=== PATIENT | female | born 1940 | race Caucasian/White ===

== ENCOUNTER → 2021-01-25 08:54 | Outpatient (BNVA) | payer MEDICARE, SELFPAY | PROVIDERS: PCP Internal Medicine | DX: N39.0 Urinary tract infection, site not specified (principal) | CPT/HCPCS: 99212 ==

== ENCOUNTER 2022-02-11 12:53 | Outpatient (REF) | payer MEDICARE, SELFPAY ==
[2022-02-11 17:08] LABS: Urine Cytology See Pathology rpt
== END 2022-02-11 12:54 | disposition home or self-care (01) ==
LOC: HO.LAB 12:53
PROVIDERS: PCP Internal Medicine; Visit Provider Nurse Practitioner Family
DX: N39.0 Urinary tract infection, site not specified (principal); Z87.440 Personal history of urinary (tract) infections
CPT/HCPCS: 51798; 88112; 99212

== ENCOUNTER 2022-12-22 11:00 | Outpatient (REF) | payer MEDICARE, SELFPAY ==
--- NOTE | ~2022-12-22 | US_ITS ---
EXAMINATION: US RETROPERITONEAL COMPLETE (RENAL) CLINICAL INFORMATION: Urinary tract infection, site not specified. COMPARISON: CT abdomen and pelvis 11/13/2017. Ultrasound abdomen limited 02/10/2017. X-ray abdomen KUB 02/10/2017. TECHNIQUE: Real-time imaging of the kidneys and bladder. FINDINGS: RIGHT KIDNEY: 7.5 x 3.4 x 4.5 cm (SAG x AP x TRV). The kidney is normal in size, contour, and echogenicity. Renal cortical thickness is normal. No calculi or focal parenchymal lesions. No hydronephrosis. LEFT KIDNEY: 9.4 x 4.7 x 4.7 cm (SAG x AP x TRV). The kidney is normal in size, contour, and echogenicity. Renal cortical thickness is normal. No calculi or focal parenchymal lesions. No hydronephrosis. BLADDER: Well distended and normal. Bilateral ureteral jets are demonstrated. Prevoid bladder volume is 286 mL. Postvoid bladder volume is 11.1 mL. US/US retroperitoneal limited IMPRESSION: 1. Normal sonographic appearance of bilateral kidneys. Unchanged since right upper quadrant ultrasound examination on 02/10/2017. 2. Normal sonographic appearance of urinary bladder and patent bilateral ureters are demonstrated. No evidence of significant urine retention.
== END 2022-12-22 11:01 | disposition home or self-care (01) ==
LOC: HO.US 11:00
PROVIDERS: PCP Physician Assistant Medical; Visit Provider Nurse Practitioner Family
DX: N39.0 Urinary tract infection, site not specified (principal)
CPT/HCPCS: 76775

== ENCOUNTER 2023-02-27 09:38 | Outpatient (AMB) | payer MEDICARE, SELFPAY ==
--- NOTE | 2023-02-27 10:16 | MHC.OFFVIS ---
Intake Intake Visit Reasons: 1yr follow up/US(set) Intake Note: Patient is present for follow up recurrent UTI and Ultrasound (imaging 12/22/22 Urology Medication: None Blood Thinner: None Post Void Residual: 0ml's Vpk Teacher Required: No Accompanied by: Self / Same As Patient Allergies lansoprazole [Prevacid] Allergy (Unknown, Verified 02/27/23 23:40) diarrhea erythromycin base [ERYTHROMYCIN BASE] Adverse Reaction (Intermediate, Verified 02/27/23 23:40) NAUSEA & VOMITING Erythromycin Allergy (Unknown, Uncoded 02/27/23 23:40) Unknown Medication List - Last Reconciled 02/27/23 by BRITTANY Mojica acetaminophen 0 mg PO aspirin 81 mg PO DAILY atorvastatin 10 mg PO DAILY brimonidine 0.2% drtommie ophthalmic (eye) dronedarone ([place]aq) 400 mg PO DAILY ipratropium bromide intranasal lorazepam 0.5 mg PO BID PRN nitrofurantoin macrocrystal 50 mg PO BEDTIME 90 days valsartan 160 mg PO DAILY HPI HPI Comments History of Present Illness Details Nevin is a pleasant 83-year-old female patient female patient who presents to the office today for follow-up of her chronic recurrent urinary tract infections. She has a past medical history of AFib, hemangioma of the liver, idiopathic osteoporosis, aortic stenosis, hyperlipidemia, hiatal hernia, gout anxiety, hearing loss, aortic valve disorder, UTI, and microscopic hematuria. In discussion with the patient today she reports to be doing and feeling well. She reports noting no UTI like symptoms and or UTIs since her last office visit here over a year ago. Recent retroperitoneal ultrasound results reviewed with the patient today. Bilateral kidneys with no calculi, lesions, and or hydronephrosis. The bladder is well distended and normal. Bilateral ureteral jets are demonstrated. Pre void bladder volume is approximately 300 mL. Postvoid bladder volume is approximately 10 mL. When asked she reports compliance with 50 mg of Macrobid daily. She currently denies any bothersome urinary issues or concerns. She denies urinary urgency, urinary frequency, incontinence, nocturia, hematuria, dysuria, foul smelling urine, changes to urinary stream, flank pain, fever, and or chills. She is happy with her current voiding parameters. In office urinalysis results reviewed with the patient today. PVR 0 mL. PFSH Medical History History of recurrent urinary tract infection Dysuria Hemorrhage of gastrointestinal tract Atrial fibrillation Hemangioma of liver Idiopathic osteoporosis Aortic stenosis Hyperlipidemia Hiatal hernia Anxiety Hearing loss Aortic valve disorder UTI (urinary tract infection) Microscopic hematuria Surgical History History of surgery H/O aortic valve replacement H/O adenoidectomy History of tonsillectomy History of hernia repair H/O laparoscopy History of colonoscopy Family History Father Prostate cancer Mother Sepsis Other Breast cancer Review of Systems Const Reports no additional complaints Eyes Reports no additional complaints ENT Reports no additional complaints Card Reports no additional complaints Resp Reports no additional complaints GI Details: patient reports using felice seeds that help her with regular bowel movements Reports no additional complaints Reports as per HPI Musc Reports no additional complaints Neuro Reports no additional complaints Psych Reports no additional complaints Physical Exam Const General: cooperative, healthy appearing, comfortable, no acute distress, well developed, alert and awake Nutritional Appearance: average body habitus Orientation/consciousness: patient oriented x3 Limitations: no limitations HEENT Head: Yes normal to inspection, Yes normocephalic and Yes atraumatic Ears: hearing grossly normal bilaterally Eyes General: appearance normal, both eyes and all related structures Neck Neck: Yes normal visual inspection and Yes trachea midline Chest Chest palpation & inspection: normal inspection of the chest Resp Effort & Inspection: normal respiratory effort and able to speak in complete sentences Cardio Rate: regular rate GI Inspection: Yes normal to inspection General: Yes no CVA tenderness Back/Spine/Pelvis Back: no CVA tenderness Neuro General: patient oriented x3 Extrem General: Yes normal to inspection Psych Appearance: grossly normal and well kempt Mental Status: mental status grossly normal Speech and movement: Normal speech and movement present and Clear speech present Affect: normal affect Attitude: cooperative Thought process: Normal thought process present Thought content: Normal thought content present Insight: Good insight present (Psych) Judgement: Good judgement present (Psych) Office Procedures Post Void Residual Post Residual Void Post Void Residual (PVR): 0 [id number] Void Residual by ultrasound Results AMB Urinalysis, Automated UA Leukoctes 0 Dante/uL Last Edit by Petra Hagen on 02/27/23 10:39 UA Nitrite Negative Last Edit by [employer] on 02/27/23 10:39 UA Urobilinogen 0.2 mg/dL Last Edit by [employer] on 02/27/23 10:39 UA Protein 0 mg/dL Last Edit by [employer] on 02/27/23 10:39 UA pH 6.0 Last Edit by [employer] on 02/27/23 10:39 UA Blood 0 David/uL Last Edit by [employer] on 02/27/23 10:39 UA Specific Cord 1.010 Last Edit by [employer] on 02/27/23 10:39 UA Ketone Negative Last Edit by [employer] on 02/27/23 10:39 UA Bilirubin 0 mg/dL Last Edit by [employer] on 02/27/23 10:39 UA Glucose 0 mg/dL Last Edit by [employer] on 02/27/23 10:39 Results Reviewed Results Reviewed: Laboratory Last Values Urine pH (Auto) 6.0 02/27/23 10:18 Specific Cord (Auto) 1.010 02/27/23 10:18 Urine Protein (Auto) 0 mg/dL 02/27/23 10:18 Glucose (UA)(Auto) 0 mg/dL 02/27/23 10:18 Urine Ketones (Auto) Negative 02/27/23 10:18 Urine Blood (Auto) 0 David/uL 02/27/23 10:18 Urine Nitrite (Auto) Negative 02/27/23 10:18 Urine Bilirubin (Auto) 0 mg/dL 02/27/23 10:18 Urine Urobilinogen (Auto) 0.2 mg/dL 02/27/23 10:18 Leukocyte Esterase (Auto) 0 Dante/uL 02/27/23 10:18 Date of Service: 12/22/22 EXAMINATION: US RETROPERITONEAL COMPLETE (RENAL) FINDINGS: RIGHT KIDNEY: 7.5 x 3.4 x 4.5 cm (SAG x AP x TRV). The kidney is normal in size, contour, and echogenicity. Renal cortical thickness is normal. No calculi or focal parenchymal lesions. No hydronephrosis. LEFT KIDNEY: 9.4 x 4.7 x 4.7 cm (SAG x AP x TRV). The kidney is normal in size, contour, and echogenicity. Renal cortical thickness is normal. No calculi or focal parenchymal lesions. No hydronephrosis. BLADDER: Well distended and normal. Bilateral ureteral jets are demonstrated. Prevoid bladder volume is 286 mL. Postvoid bladder volume is 11.1 mL. IMPRESSION: 1. Normal sonographic appearance of bilateral kidneys. Unchanged since right upper quadrant ultrasound examination on 02/10/2017. 2. Normal sonographic appearance of urinary bladder and patent bilateral ureters are demonstrated. No evidence of significant urine retention. Assessment & Plan Assessment & Plan (1) History of recurrent urinary tract infection: Code(s): Z87.440 - Personal history of urinary (tract) infections Plan In office urinalysis results reviewed with the patient today; as noted above. PVR 0 mL. Recent retroperitoneal ultrasound results reviewed with the patient today. Patient reports no UTI like symptoms and or UTI since her last visit here approximately 1 year ago. She currently denies any bothersome urinary issues or concerns at this time. Continue Macrobid; refill provided Discussed UTI prevention with D mannose supplement, vitamin-C, increasing fluid intake, behavioral therapy with timed voiding, perineal hygiene and postcoital voiding, and management of constipation with stool softeners and increased fiber intake. Follow-up in 1 year with PVR; or sooner with any issues, concerns, and or questions. Orders: Orders AMB Urinalysis Automated 02/27/23 Z13.9 - Encounter for screening, unspecified AMB Post Void Residual by ultrasound 02/27/23 N39.0 - Urinary tract infection, site not specified Medications: Refilled nitrofurantoin macrocrystal must administer with a meal/food Decrease in dose 50 mg PO BEDTIME 90 days 90 caps 3RF N39.0 - Urinary tract infection, site not specified Discontinued nitrofurantoin macrocrystal must administer with a meal/food Discontinued Reason: Doctor's Order 100 mg PO DAILY 30 days 30 caps 1RF Patient Instructions: The patient had an opportunity to ask questions regarding the treatment plan. All questions were answered. Physical exam, labs, and imaging were discussed and reviewed in detail. As well as risks, benefits, and discussion of treatment choices. No major barriers to understanding were identified. The patient expressed understanding and agreement with the above treatment plan. The patient was made aware they should contact our office by phone for worsening of their current condition, the appearance of new symptoms, or with any questions or concerns. Compliance is encouraged with any medications and follow up testing that is ordered. It is a privilege to be allowed the opportunity to participate in? your urological care.? Again, if you have any questions or concerns If you have any questions or concerns please do not hesitate to contact me. The office is [phone]. This note is constructed using voice recognition software. While every effort has been made to ensure accuracy windows server administrator errors may have been included. Yours sincerely, LURDES Mojica-CARMEN Coding Level of Care Code Est Pt Level 3 (03712) Diagnoses History of recurrent urinary tract infection Z87.440 CPT Codes Post Residual Void - PVR CPT Code: 35806-Ppkp Void Residual by ultrasound ([id number])
== END 2023-02-27 10:52 | disposition home or self-care (01) ==
PROVIDERS: Visit Provider Nurse Practitioner Family
DX: Z87.440 Personal history of urinary (tract) infections (principal)
CPT/HCPCS: 99213

== ENCOUNTER → 2023-02-27 09:38 | Outpatient (BNVA) | payer MEDICARE, SELFPAY | PROVIDERS: Visit Provider Nurse Practitioner Family | DX: Z87.440 Personal history of urinary (tract) infections (principal) | CPT/HCPCS: 51798; 81003; 99212 ==

== ENCOUNTER → 2023-03-05 10:55 | Outpatient (REF) | payer MEDICARE, SELFPAY ==
--- NOTE | 2023-03-05 11:05 | CA_ITS ---
Transthoracic Echocardiogram Patient (Last, First, Middle): Nevin Chavez, Gender: Female Date of : 1940 Age: 83 Procedure Date: 03/05/2023 Procedure Type: Transthoracic Echocardiogram Location: OP Height: 149.86 cm Weight: 51.71 kg BSA: 1.45 m2 Heart Rate: 60 bpm BP: 130 / 82 mmHg Barrel Handler: SB Referring MD: Marcial Ponce MD Symptoms: Z95.2 A/P AVR Study Quality: Adequate ECG Rhythm: Sinus Conclusions: - The left ventricular systolic function is normal. The calculated ejection fraction is 61% by biplane method. - Evidence suggests grade III (severe) diastolic dysfunction. - A bioprosthetic aortic valve is present. The prosthetic aortic valve appears to be functioning normally. Findings Left Ventricle Normal left ventricular cavity size. There is normal left ventricular wall thickness. The left ventricular systolic function is normal. The calculated ejection fraction is 61% by biplane method. There is no evidence of regional wall motion abnormalities. There is paradoxical septal motion consistent with post-operative status. Evidence suggests grade III (severe) diastolic dysfunction. Right Ventricle Normal right ventricular cavity size. There is moderate to severely decreased right ventricular systolic function. Atria Both atria are normal in size. Aortic Valve A bioprosthetic aortic valve is present. The prosthetic aortic valve appears to be functioning normally. There is no aortic valve regurgitation. Mitral Valve The mitral valve appears normal. There is mild mitral valve regurgitation. There is no mitral valve stenosis. Pulmonic Valve The pulmonic valve is likely normal. Tricuspid Valve Normal tricuspid valve structure. There is mild tricuspid valve regurgitation. There is no evidence of pulmonary hypertension. Great Vessels The asc aorta is normal in size. Venous The inferior vena cava is normal in size and collapses greater than 50% with inspiration. Pericardium/Pleural There is no evidence of pericardial effusion. Prior Study Comparison No prior study available for comparison. Measurements 2D Linear Measurements IVSd: 0.94 0.6-0.9/0.6-1.0 cm LVIDd: 3.69 3.9-5.3/4.2-5.9 cm LVIDd Index: 2.54 2.4-3.2/2.2-3.1 cm/m2 LVIDs: 2.46 2.0-3.6 cm LVPWd: 0.63 0.7-1.1 cm LA Diam: 3.10 2.7-3.8/3.0-4.0 cm LAIDs Index: 2.14 1.5-2.3 cm/m2 LV Mass: 99.19 67-162/88-224 g LV Mass Index: 68.40 43-95/49-115 g/m2 LVOT Diam: 1.80 3.0+(-)1.3 cm 2D Systolic Function EF 4C: 58.30 >55% EF 2C: 65.70 >55% EF BiP: 61.40 >55% Mitral Valve MV VTI: 0.42 MV Pk Daniel: 1.54 MV Mn Daniel: 0.87 MV Pk Grad: 9.00 MV Mn Grad: 4.00 MV Pk E: 1.50 MV PK A: 0.61 MV Decel Time: 317.00 E/A: 2.50 E'Lateral: 7.90 E'Medial: 3.30 E/E' Med: 45.50 E/E' Lat: 19.00 PHT: 93.00 MVA PHT: 2.37 MVA Continuity: 1.27 Decel Billings: 4.73 MR ERO: 13.00 MR Alias Daniel: 0.39 MR RAD: 0.50 Aortic Valve AoV Pk Daniel: 1.77 AoV Mn Daniel: 1.30 AoV VTI: 0.40 AoV Pk Grad: 13.00 Aov Mn Grad: 7.00 BULMARO Cont.VTI: 1.32 LVOT LVOT Pk Daniel: 0.92 LVOT Mn Daniel: 0.60 LVOT VTI: 0.21 LVOT Pk Grad: 3.00 LVOT Mn Grad: 2.00 LVOT Diam: 1.80 LVOT Area: 2.54 Diastolic Function MV Pk E: 1.50 MV Pk A: 0.61 E/A: 2.50 E'Medial: 3.30 E/E' Med: 45.50 E' Laterial: 7.90 E/E' Lat: 19.00 Right Ventricle TAPSE (mm): 9.70 TVS' Daniel: 6.39 Tricuspid Valve TR Pk Daniel: 2.56 TR Pk Grad: 26.00 RA Press: 3.00 RVSP: 29.00 Great Vessels Aorta Sinus of Valsalva: 2.70 2.0-3.5 cm Ao Asc: 3.00 2.1-3.4 cm Pulmonary Valve PV Pk Daniel: 0.88 Peak PV Grad: 3.00 Updated in Other Vendor System with Status of Final Shravan Euceda MD electronically signed on 03/06/2023 3:22:29 PM with status of Final
== END ==
LOC: HO.CARD 10:55
PROVIDERS: PCP Physician Assistant Medical; Visit Provider Internal Medicine Cardiovascular Disease
DX: Z95.2 Presence of prosthetic heart valve (principal)
CPT/HCPCS: 93306

== ENCOUNTER → 2023-03-05 11:05 | Outpatient (BNV) | payer MEDICARE, SELFPAY | PROVIDERS: PCP Physician Assistant Medical; Visit Provider Internal Medicine | DX: I34.0 Nonrheumatic mitral (valve) insufficiency (principal); I36.1 Nonrheumatic tricuspid (valve) insufficiency | CPT/HCPCS: 93306 ==

== ENCOUNTER 2023-12-05 12:15 | Outpatient (AMB) | payer MEDICARE, SELFPAY ==
--- NOTE | 2023-12-05 12:19 | AM.OFFWIN_ITS ---
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 Intake Note: Pt is here today Lt arm pain due to a fall Allergies lansoprazole [Prevacid] Allergy (Unknown, Verified 12/05/23 12:31) diarrhea erythromycin base [ERYTHROMYCIN BASE] Adverse Reaction (Intermediate, Verified 12/05/23 12:31) NAUSEA & VOMITING Erythromycin Allergy (Unknown, Uncoded 12/05/23 12:31) Unknown HPI HPI Comments History of Present Illness Details She presents to office with L arm injury She is R hand dominant Thursday she tripped over a step No HT or LOC + abrasion L arm initially with slight b leeding No large area to clean but used Aquaphor and A/D ointment Slight pain to area, approx 2/10 with palpation Her concern today is that her bruising is getting larger On baby aspirin but no other thinners Last night slight numbness over area She used ice after injury but not recently [facility] Medical History History of recurrent urinary tract infection Dysuria Hemorrhage of gastrointestinal tract Atrial fibrillation Hemangioma of liver Idiopathic osteoporosis Aortic stenosis Hyperlipidemia Hiatal hernia Anxiety Hearing loss Aortic valve disorder UTI (urinary tract infection) Microscopic hematuria Surgical History History of surgery H/O aortic valve replacement H/O adenoidectomy History of tonsillectomy History of hernia repair H/O laparoscopy History of colonoscopy Family History Father Prostate cancer Mother Sepsis Other Breast cancer Review of Systems Const Denies chills, Denies fatigue, Denies fever(s) and Denies headache(s) Eyes Denies blurry vision ENT Denies dizziness and Denies headache(s) Card Denies chest pain and Denies syncope Resp Denies cough Musc Reports tingling (tingling/numbness L forearm yesterday; resolved) and Reports other (L arm injury, edema) Skin/Breast Reports wounds (L forearm ecchymosis) Neuro Denies dizziness, Denies syncope, Denies headache(s), Denies focal weakness, Reports tingling (tingling/numbness L forearm yesterday; resolved) and Denies paresthesias Endo Denies fatigue Physical Exam Vital Signs: Last Vital Signs Temp 97.6 F 12/05/23 12:30 Pulse 76 12/05/23 12:30 BP 120/72 12/05/23 12:30 Pulse Ox 96 12/05/23 12:30 Oxygen Delivery Method Room Air 12/05/23 12:30 BMI result Body Mass Index 22.6 General: Non-toxic, NAD. Speaking full sentences. Skin: Warm dry throughout. L forearm along radial aspect pt has one mid forearm small palpable hematoma with superficial scabbed linear abrasion approx 2cm in length. Around and surrounding forearm has dark blue/purple discoloration. Discoloration extends to distal ulnar and a little along ventral aspect of forearm and along dorsal ulnar aspect extending proximally to approx 2cm from antecubital fossa. No bleeding or other edema noted, No extreme warmth or coolness to palpation Respiratory: No espiratory distress Cardiac: Radial pulse intact. Cap refill < 2 seconds L hand MSK: Full ROM extremities. Minimal tenderness to palpation distal ulna and area where hematoma is. Full ROM L wrist, elbow and shoulder without tenderness to palpation of those joints LUE Neurology: A/O. No aphasia or facial droop. Gait without abnormality Psych: Good mood and affect Assessment & Plan Assessment & Plan (1) Hematoma of arm: Code(s): S40.029A - Contusion of unspecified upper arm, initial encounter Qualifiers: Encounter type: initial encounter Laterality: left Qualified Code(s): S40.022A - Contusion of left upper arm, initial encounter Plan: Patient seen and evaluated. Xray forearm was revieed by myself as negative Discussed with pt warm compress/massage to break up hematoma Not concerned with spreading ecchymosis due to gravity Told elevation Monitor and call with concerns Numbness most likely due to pressure on nerve from hematoma and if it occurs again with weakness etc seek evaluation Patient gave verbal understanding and had no additional questions or concerns at time of discharge All questions answered Orders: Orders XR forearm LT 2V Today S40.029A - Contusion of unspecified upper arm, initial encounter Coding Level of Care Code Est Pt Level 3 (05998) Diagnoses Contusion of left upper extremity, initial encounter S40.022A Encounter type: initial encounter Laterality: left
[2023-12-05 12:30] VITALS: BP 120/72; PULSE 76; TEMP 36.4; O2SAT 96; BMI 22.6
== END 2023-12-05 13:14 | disposition home or self-care (01) ==
PROVIDERS: PCP Physician Assistant Medical; Visit Provider Physician Assistant
DX: S40.022A Contusion of left upper arm, initial encounter (principal)

== ENCOUNTER → 2023-12-05 12:15 | Outpatient (BNVA) | payer MEDICARE, SELFPAY | PROVIDERS: PCP Physician Assistant Medical ==

== ENCOUNTER 2023-12-05 12:20 | Outpatient (REF) | payer MEDICARE, SELFPAY ==
--- NOTE | ~2023-12-05 | XR_ITS ---
EXAMINATION: XR FOREARM, LEFT CLINICAL INFORMATION: Contusion. Concern for fracture. COMPARISON: None available. TECHNIQUE: AP and lateral views of the left forearm were obtained. FINDINGS: The bony structures are osteopenic. No fracture is seen. There appears to be mild soft tissue swelling/edema about the forearm. XR/XR forearm LT 2V IMPRESSION: No acute fracture. Soft tissue swelling/edema. Electronically signed by: Ronny España MD 12/06/2023 05:48 AM EDT
== END 2023-12-05 12:21 | disposition home or self-care (01) ==
LOC: HO.HMGCX 12:20
PROVIDERS: Visit Provider Physician Assistant
DX: S40.022A Contusion of left upper arm, initial encounter (principal)
CPT/HCPCS: 73090; 99212

== ENCOUNTER 2024-02-29 10:23 | Outpatient (AMB) | payer MEDICARE, SELFPAY ==
--- NOTE | 2024-02-29 10:30 | A.OFFVIS_ITS ---
Intake Visit Reasons: 1y/PVR Intake Note: Patient is present for 1Y follow up/PVR Urology Medication: None ALLERGIES: ERYTHROMYCIN Blood Thinner: None Post Void Residual: 0ml's TODAY'S PVR:0ML'S Manager Documentation Required: No Accompanied by: Self / Same As Patient Allergies lansoprazole [Prevacid] Allergy (Unknown, Verified 02/29/24 11:18) diarrhea erythromycin base [ERYTHROMYCIN BASE] Adverse Reaction (Intermediate, Verified 02/29/24 11:18) NAUSEA & VOMITING Erythromycin Allergy (Unknown, Uncoded 02/29/24 11:18) Unknown Medication List - Last Reconciled 02/29/24 by LURDES Mojica- aspirin 81 mg PO DAILY dronedarone (Multaq) 400 mg PO DAILY estradiol 0.01%(0.1mg/gram) (Estrace) 1 appful vaginal 3XW 90 days lorazepam 0.5 mg PO BID PRN nitrofurantoin macrocrystal 50 mg PO BEDTIME 90 days rosuvastatin 10 mg PO BEDTIME valsartan 80 mg PO DAILY HPI Comments Details: Nevin is a pleasant 84-year-old female patient female patient who presents to the office today for follow-up of her chronic recurrent urinary tract infections. She has a past medical history of AFib, hemangioma of the liver, idiopathic osteoporosis, aortic stenosis, hyperlipidemia, hiatal hernia, gout anxiety, hearing loss, aortic valve disorder, recurrent UTIs, and microscopic hematuria. In discussion with the patient today she reports to be doing and feeling well. She reports noting no UTI like symptoms and or UTIs since her last office visit here over a year ago. She reports compliance with low-dose Macrobid as prescribed. Previous workup has included a retroperitoneal ultrasound 01/08 noting bilateral kidneys with no calculi, lesions, and or hydronephrosis. The bladder is well distended and normal. Bilateral ureteral jets are demonstrated. Pre void bladder volume is approximately 300 mL. Postvoid bladder volume is approximately 10 mL. When asked she reports compliance with 50 mg of Macrobid daily. In discussion with the patient today she does report noting stress urinary incontinence. We discussed further intervention for stress urinary incontinence. She discusses at length her ongoing GI issues since her daughter was born over 60 years ago. She reports noting lower abdominal cramping, constipation, and hemorrhoids. We discussed correlation of constipation and recurrent urinary tract infections. She was enquiring pelvic organ prolapse therefore exam was performed in office today. No evidence of pelvic organ prolapse was found on exam today. Mild irritation noted to urethra. She otherwise denies urinary urgency, urinary frequency, nocturia, hematuria, dysuria, foul smelling urine, changes to urinary stream, flank pain, fever, and or chills. In office urinalysis results reviewed with the patient today. PVR 0 mL. PFSH Medical History History of recurrent urinary tract infection Dysuria Hemorrhage of gastrointestinal tract Atrial fibrillation Hemangioma of liver Idiopathic osteoporosis Aortic stenosis Hyperlipidemia Hiatal hernia Anxiety Hearing loss Aortic valve disorder UTI (urinary tract infection) Microscopic hematuria Surgical History History of surgery H/O aortic valve replacement H/O adenoidectomy History of tonsillectomy History of hernia repair H/O laparoscopy History of colonoscopy Family History Father Prostate cancer Mother Sepsis Other Breast cancer Review of Systems Const Reports no additional complaints Eyes Reports no additional complaints ENT Reports no additional complaints Card Reports no additional complaints Resp Reports no additional complaints GI Details: patient reports using felice seeds that help her with regular bowel movements Reports no additional complaints Reports as per HPI Musc Reports no additional complaints Neuro Reports no additional complaints Psych Reports no additional complaints Physical Exam Const General: cooperative, healthy appearing, comfortable, no acute distress, well developed, alert and awake Nutritional Appearance: average body habitus Orientation/consciousness: patient oriented x3 Limitations: no limitations HEENT Head: Yes normal to inspection, Yes normocephalic and Yes atraumatic Ears: hearing grossly normal bilaterally Eyes General: appearance normal, both eyes and all related structures Neck Neck: Yes normal visual inspection and Yes trachea midline Chest Chest palpation & inspection: normal inspection of the chest Resp Effort & Inspection: normal respiratory effort and able to speak in complete sentences Cardio Rate: regular rate GI Inspection: Yes normal to inspection General: Yes no CVA tenderness External Female Exam: normal external appearance Speculum Exam - Vagina: normal appearance of the vagina Back/Spine/Pelvis Back: no CVA tenderness Neuro General: patient oriented x3 Extrem General: Yes normal to inspection Psych Appearance: grossly normal and well kempt Mental Status: mental status grossly normal Speech and movement: Normal speech and movement present and Clear speech present Affect: normal affect Attitude: cooperative Thought process: Normal thought process present Thought content: Normal thought content present Insight: Fair insight present (Psych) Judgement: Fair judgement present (Psych) Office Procedures Post Void Residual Post Residual Void Post Void Residual (PVR): 0 [id number] Void Residual by ultrasound Results AMB Urinalysis, Automated UA Leukoctes 0 Dante/uL Last Edit by DAVID Archuleta on 02/29/24 10:44 UA Nitrite Negative Last Edit by Loc Ortiz [facility] on 02/29/24 10:44 UA Urobilinogen 0.2 mg/dL Last Edit by Loc Ortiz [facility] on 02/29/24 10:4 4 UA Protein 0 mg/dL Last Edit by Loc Ortiz [facility] on 02/29/24 10:44 UA pH 6.0 Last Edit by Loc Ortiz [facility] on 02/29/24 10:44 UA Blood 0 David/uL Last Edit by Loc Ortiz [facility] on 02/29/24 10:44 UA Specific [place] 1.010 Last Edit by Loc Ortiz [facility] on 02/29/24 10: 44 UA Ketone Negative Last Edit by Loc Ortiz [facility] on 02/29/24 10:44 UA Bilirubin 0 mg/dL Last Edit by Loc Ortiz [facility] on 02/29/24 10:44 UA Glucose 0 mg/dL Last Edit by Loc Ortiz [facility] on 02/29/24 10:44 Results Reviewed Results Reviewed: Laboratory Last Values Urine pH (Auto) 6.0 02/29/24 10:44 Specific [place] (Auto) 1.010 02/29/24 10:44 Urine Protein (Auto) 0 mg/dL 02/29/24 10:44 Glucose (UA)(Auto) 0 mg/dL 02/29/24 10:44 Urine Ketones (Auto) Negative 02/29/24 10:44 Urine Blood (Auto) 0 David/uL 02/29/24 10:44 Urine Nitrite (Auto) Negative 02/29/24 10:44 Urine Bilirubin (Auto) 0 mg/dL 02/29/24 10:44 Urine Urobilinogen (Auto) 0.2 mg/dL 02/29/24 10:44 Leukocyte Esterase (Auto) 0 Dante/uL 02/29/24 10:44 Assessment & Plan Assessment & Plan (1) Stress incontinence: Code(s): N39.3 - Stress incontinence (female) (male) Category: Medical (2) History of recurrent urinary tract infection: Code(s): Z87.440 - Personal history of urinary (tract) infections Category: Medical Plan In office urinalysis results reviewed with the patient today; as noted above. PVR 0 mL. We discussed at length potential causes of stress incontinence as well as further treatment options and risks and benefits of these treatment options. Will refer to pelvic floor therapy for further assessment evaluation. We discussed further treatment options of recurrent urinary tract infections Start Estrace cream as discussed and prescribed Discussed trial of discontinuation of low-dose Macrobid in 6 months status post initiation of Estrace cream. Will refer to GI for further assessment evaluation as patient reports longstanding history of constipation and hard stools with abdominal bloating. Follow-up in 9 months with PVR; or sooner with any issues, concerns, and or questions Orders: Orders AMB Urinalysis Automated Today Z13.9 - Encounter for screening, unspecified PT Evaluation and Treatment Today N39.3 - Stress incontinence (female) (male) Referrals Gastroenterology Referral K59.00 - Constipation, unspecified Medications: New estradiol 0.01%(0.1mg/gram) (Estrace) Apply pea-sized amount to urethra 3 times per week 1 appful vaginal 3XW 90 days 42.5 grams 3RF Patient Instructions: The patient had an opportunity to ask questions regarding the treatment plan. All questions were answered. Physical exam, labs, and imaging were discussed and reviewed in detail. As well as risks, benefits, and discussion of treatment choices. No major barriers to understanding were identified. The patient expressed understanding and agreement with the above treatment plan. The patient was made aware they should contact our office by phone for worsening of their current condition, the appearance of new symptoms, or with any que stions or concerns. Compliance is encouraged with any medications and follow up testing that is ordered. It is a privilege to be allowed the opportunity to participate in? your urological care.? Again, if you have any questions or concerns If you have any questions or concerns please do not hesitate to contact me. The office is [phone]. This note is constructed using voice recognition software. While every effort has been made to ensure accuracy superintendent car construction errors may have been included. Yours sincerely, BRITTANY Mojica Coding Level of Care Code Est Pt Level 4 (69875) Complex EM visit Add On G2211 Diagnoses Stress incontinence N39.3 History of recurrent urinary tract infection Z87.440 CPT Codes Post Residual Void - PVR CPT Code: 03459-[id number] Void Residual by ultrasound ([id number])
--- OUTSIDE RECORDS SUMMARY | 2024-02-29 11:54 | XMS_ITS | Patient Health Record ---
[facility] Address [address] [place] [address] Care Team Providers Care Pari Mutuel Clerk Name Role Phone Yordan Seay MD Primary Care Provider Ibana Any Kaur Unavailable [phone] Allergies Allergen (clinical drug ingredient) Drug/Non Drug Allergy documented on EMR Reaction Allergy Type Onset Date Status erythromycin Erythromycin Unknown Drug Allergy A ctive lansoprazole Prevacid diarrhea Drug Allergy Acti ve Reason For Referral No Information Medications Medication SIG (Take, Route, Frequency, Duration) Notes Start Date End Date Status Simvastatin 40 MG Oral for 90 Active Propafenone HCl 150 MG Oral for 90 Active LORazepam 0.5 MG Oral for 30 prn A ctive Ipratropium [place] 0.06 % Nasal for 90 prn Not-Taking zzzBone Stimulator . . . . for dx Stress fx 2014 Not-Taking Physical Therapy . . Gait training, strengthening. Call with questions 2-3x/week for 3-4 weeks 05/23/2015 Not-Taki ng Physical Therapy . . . 2-3x/week for as needed 10/06/2016 Active ASO Ankle/Foot Stablizing AFO As directed Wear Daily for as needed 09/01/2016 Active Atenolol 50 MG Oral for 90 Act celena Aspirin 81 MG 1 tablet Orally Once a day Active Diphenoxylate-Atropine 2.5-0.025 MG Oral for 7 Not-Taking Nightsplint AFO as directed Wear As directed for as needed 11/17/2016 Active Social History Tobacco Use: Social History Observation Description Date Details (start date - stop date) Former Smoker NA - NA Tobacco Use/Smoking Question Answer Notes Are you a: former smoker When did you stop smoking? 50 yrs ago Additional Findings: Tobacco Non-User Current no n-smoker Tobacco use other than smoking: Question Answer Notes Are you an other tobacco user? No Problems No Known Problems Plan Of Treatment No Information Insurance Providers Payer Name Payer Address Payer Phone Subscriber Number Group Number Insured Name Patient Relationship to Insured Coverage Start Date Coverage End Date [facility] [id number] [place] [phone] [id number] Nevin Chavez Self - patient is the insured Medical (General) History Medical History History ICD Code Hemangioma of liver Anxiety Hiatal hernia with reflux Hyperlipidemia Aortic stenosis Osteoporosis, ideopathic Atrial fibrillation, paroxysmal Hemorrhage of gastrointestinal tract Transfusions Surgical History Surgery Date(Month/Year) tonsillectomy and adenoidectomy inguinal hernia repair, laparoscopic colonoscopy gastric biopsy Hospitalization History Reason Date(Month/Year) [place] xrays right foot 12/30/14
--- OUTSIDE RECORDS SUMMARY | 2024-02-29 11:54 | XMS_ITS ---
Author Name [facility] Organization Unknown History of Medication Use Medication Directions Dispensed Refills Start Date End Date Stat furosemide (LASIX) 20 MG tablet Take 1 tablet (20 mg total) by mouth daily. 12/25/2021 active sotalol (BETAPACE) 80 MG tablet Take 1 tablet (80 mg total) by mouth every 12 (twelve) hours around the clock. 12/25/2021 active furosemide (LASIX) 20 MG tablet Take 1 tablet (20 mg total) by mouth daily. 12/25/2021 active warfarin (COUMADIN) 1 MG tablet Take 0.5 tablets (0.5 mg total) by mouth daily at the same time. Unless otherwise directed for GOAL INR 2-3 (AF and AVR) 12/25/2021 active lisinopril (PRINIVIL,ZeSTRIL) 5 MG tablet Take 1 tablet (5 mg total) by mouth daily. 12/25/2021 active Problems Problem Status Onset Date Problem Type Date of Resoluti on Source Chest pain active 2017-02-05 [facility]
== END 2024-02-29 11:14 | disposition home or self-care (01) ==
PROVIDERS: PCP Physician Assistant Medical; Visit Provider Nurse Practitioner Family
DX: N39.3 Stress incontinence (female) (male) (principal); Z87.440 Personal history of urinary (tract) infections; Z13.9 Encounter for screening, unspecified
CPT/HCPCS: 99214; G2211

== ENCOUNTER → 2024-02-29 10:23 | Outpatient (BNVA) | payer MEDICARE, SELFPAY | PROVIDERS: PCP Physician Assistant Medical; Visit Provider Nurse Practitioner Family | DX: N39.3 Stress incontinence (female) (male) (principal); Z87.440 Personal history of urinary (tract) infections | CPT/HCPCS: 51798; 81003; 99212 ==

== ENCOUNTER 2024-11-29 11:15 | Outpatient (REF) | payer MEDICARE, SELFPAY ==
--- OUTSIDE RECORDS SUMMARY | 2024-11-29 14:57 | XMS_ITS | Encounter Summary ---
Author Organization [employer] Address [address] [facility] [address] [place] [address] Care Team Providers Care Loss Control Manager Name Role Phone Unavailable Primary Care Provider Unavailabl e Encounter Details Date Type Department Care Team (Late Contact Info) Description 08/11/2023 Telephone [facility] ADULT DENTAL [address] [facility] [place] [address] Osvaldo Nunes DMD [address] [place] [address] Social History Tobacco Use Types Packs/Day Years Used Date Smoking Tobacco: Never Passive Smoke Exposure: Never Smokeless Tobacco: Never Comments Unknown Sex and Gender Information Value Date Recorded Sex Assigned at Female 12/16/2021 10:33 AM EDT Legal Sex Female 10:33 AM EDT Gender Identity Female 12/16/2021 10:33 AM EDT Sexual Orientation Straight 12/16/2021 10 :33 AM EDT documented as of this encounter Miscellaneous Notes * Telephone Encounter - Jannet Yang - 08/11/2023 12:02 PM EDT Patient says she got seen today she says during her izabela her front tooth got chipped .she would like a call from dr nunes documented in this encounter Plan of Treatment Upcoming Encounters Date Type Department Care Team (Late Contact Info) Description 02/03/2025 1:30 PM EST Office Visit [facility] ADULT DENTAL [address] [place] [address] Anjel Yeboah documented as of this encounter Visit Diagnoses Not on filedocumented in this encounter
--- OUTSIDE RECORDS SUMMARY | 2024-11-29 14:57 | XMS_ITS | Clinical Summary ---
Author Organization [employer] Address [address] [facility] 7t [place] [address] Care Team Providers Care Senior Consumer Insights Consultant Name Role Phone Unavailable Primary Care Provider Unavailabl e Allergies Active Allergy Reactions Criticality Noted Date Comments Erythromycin Rash,Unknown Medium 11/01/2008 Lansoprazole Diarrhea Low 11/01/2008 Medications valsartan (Diovan) 160 MG tablet Take 1 tablet by mouth at bed time. 07/01/19 18 Active aspirin 81 MG EC tablet Take 1 tablet by mouth in the morning. 07/01/19 18 Active sotalol (Betapace) 80 MG tablet Take 1 tablet by mouth every 12 (twelve) hours. 07/01/19 18 Active nitrofurantoin (Macrodantin) 100 MG capsule Take 1 capsule by mouth every 6 (six) hours. Active atorvastatin (Lipitor) 10 MG tablet Take 1 tablet by mouth at bed time. Active Simvastatin (FloLipid) 20 MG/5ML suspension Take by mouth. Acti ve atorvastatin (Lipitor) 40 MG tablet Take 1 tablet by mouth in the morning. 02/13/20 22 Active valsartan (Diovan) 320 MG tablet Take 0.5 tablets by mouth in the morning. 07/10/19 22 Active dronedarone (Multaq) 400 MG tablet 200 mg. 06/18/19 22 Active LORazepam (Ativan) 0.5 MG tablet 12/17/19 22 Active rosuvastatin (Crestor) 10 MG tablet Take 10 mg by mouth Once per day. Active amoxicillin (Amoxil) 500 MG capsule Take 500 mg by mouth. Active valsartan (Diovan) 80 MG tablet Take 80 mg by mouth Once per day. Active nitrofurantoin (Macrodantin) 50 MG capsule TAKE 1 CAPSULE BY MOUTH AT BEDTIME FOR 90 DAYS MUST ADMINISTER WITH A MEAL/FOOD DECREASE IN DOSE Active Sod Fluoride-Potassium Nitrate 1.1-5 % pasteIndications:Den tin hypersensitivity [place] teeth for 2 minutes, morning and night. Spit, do not rinse. Do not eat or drink anything for 30 minutes following brushing. 112 g 3 08/11/19 24 Active Active Problems Problem Noted Date Diagnosed Date Chronic venous insufficiency 11/18/2021 COVID-19 virus infection 06/23/2021 Overview (08/11/2023): 06/23/2021 Abnormal echocardiogram 11/28/2020 Overview (08/11/2023): 10/31/2020 mild to moderate mitral regurgitation. Mild mitral stenosis. [facility] Elevated LFTs 08/02/2020 Left bundle branch block 07/13/2018 S/P AVR (aortic valve replacement) 03/13/2017 Overview (08/11/2023): 02/06/2017: Porcine valve done in [place] Chest [facility] 02/05/2017 Sensorineural hearing loss (SNHL) of both ears 1 Hemangioma of liver 12/13/2012 Overview (08/11/2023): Right lobe of the liver, CT scan and MRI at [facility] 2009. Ultrasound at [facility] 2012. Anxiety 04/14/2012 Hiatal hernia 10/01/2008 Overview (08/11/2023): Demonstrated on upper GI [facility] August 2008, small sliding HH. Mixed hyperlipidemia 03/05/2007 Atrial fibrillation (CMS/HCC) 05/30/2005 Hemorrhage of gastrointestinal tract 05/30/2005 Overview (08/11/2023): Colonoscopy and EGD 2001, [facility]. IMO update Idiopathic osteoporosis 05/30/2005 Overview (08/11/2023): Intolerant of AND Evista has seen Dr. Mcmahon on several occasions has declined more d advanced therapies Social History Tobacco Use Types Packs/Day Years Used Date Smoking Tobacco: Never Passive Smoke Exposure: Never Smokeless Tobacco: Never Tobacco Cessation:Counseling Given: Not Answered Comments Unknown Sex and Gender Information Value Date Recorded Sex Assigned at Female 12/16/2021 10:33 AM EDT Legal Sex Female 10:33 AM EDT Gender Identity Female 12/16/2021 10:33 AM EDT Sexual Orientation Straight 12/16/2021 10 :33 AM EDT Last Filed Vital Signs Vital Sign Reading Time Taken Comments Blood Pressure 142/70 08/24/2024 10:17 AM EDT Pulse 70 08/02/2024 2:05 PM EDT Temperature - - Respiratory Rate - - Oxygen Saturation - - Inhaled Oxygen Concentration - - Weight - - Height - - Body Mass Index - - Plan of Treatment Upcoming Encounters Date Type Department Care Team (Late st Contact Info) Description 02/03/2025 1:30 PM EST Office Visit [facility] ADULT DENTAL [address] [place] [address] Anjel Yeboah Health Maintenance Due Date Last Done Comments Depression Screening 1940 SDOH Screening 1940 Alcohol/Substance Use Screening 1950 Hepatitis A Vaccines (1 of 2 - Risk 2-dose series) 1957 Hepatitis B Vaccines (1 of 3 - Risk 3-dose series) 1998 Dental Oral Exam 02/02/2025 08/02/2024, 06/23/2023 Dental Prophylaxis 02/02/2025 08/02/2024, 06/23/2023 Dental X-Ray: Bitewings 08/03/2025 08/02/2024, 06/22 Tobacco Screening 08/24/2025 08/24/2024 Dental X-Ray: Full Mouth 06/23/2026 06/23/2023 DTaP/Tdap/Td Vaccines (2 - Td or Tdap) 01/24/2029 01/24/2019, 07/02/2017, 10/15/2007 Pneumococcal Vaccine: 50+ Years Completed 08/09/2014, 10/15/2007 Zoster Vaccines Completed 10/18/2021, 07/18, 03/26/2010 RSV Patients and Patients Aged 60 years or older Completed 07/27/2023 COVID-19 Vaccine Completed 10/28/2024, 03/2023, 11/24/2022, Additional history exists Influenza Vaccine Completed 10/28/2024, , 11/30/2023, Additional history exists HIB Vaccines Aged Out No longer eligi ble based on patient's age to complete this topic HPV Vaccines Aged Out No longer eligi ble based on patient's age to complete this topic IPV Vaccines Aged Out No longer eligi ble based on patient's age to complete this topic Meningococcal B Vaccine Aged Out No l onger eligible based on patient's age to complete this topic Meningococcal Vaccine Aged Out No nathaly racquel eligible based on patient's age to complete this topic RSV under 20 months Aged Out No longe r eligible based on patient's age to complete this topic Rotavirus Vaccines Aged Out No longer eligible based on patient's age to complete this topic Procedures Procedure Name Priority Date/Time Associated Diagnosis Comments Full PROPHYLAXIS - ADULT Routine 025 2:00 PM EDT BITEWINGS - 4 RADIOGRAPHIC IMAGES Routine 08/02/2024 2:00 PM EDT PERIODIC ORAL EVALUATION - ESTABLISHED PATIENT Routine 08/02/2024 2:00 PM EDT Fractured dental yarsanism with loss of material INTRAORAL - COMPLETE SERIES OF RADIOGRAPHIC IMAGES Routine 06/23/2023 10:00 AM EDT Dental calculus Secondary dental caries associated with failed or defective dental yarsanism from Last 3 Months or Most Recently Relevant to Health Maintenance Insurance DENTAL - DQ [place] MEDICARE PLUS HMO
--- OUTSIDE RECORDS SUMMARY | 2024-11-29 14:57 | XMS_ITS | Encounter Summary ---
Author Organization [employer] Address [address] [facility] [address] [place] [address] Care Team Providers Care Clinical Nurse Manager Name Role Phone Unavailable Primary Care Provider Unavailabl e Encounter Details Date Type Department Care Team (Latest Contact Info) Description 09/26/2020 Abstract [facility] CONVERSIONS Dental, Provider, DDS Social History Tobacco Use Types Packs/Day Years Used Date Smoking Tobacco: Never Assessed Comments Unknown Sex and Gender Information Value Date Recorded Sex Assigned at Female 12/16/2021 10:33 AM EDT Legal Sex Female 10:33 AM EDT Gender Identity Female 12/16/2021 10:33 AM EDT Sexual Orientation Straight 12/16/2021 10 :33 AM EDT documented as of this encounter Plan of Treatment Upcoming Encounters Date Type Department Care Team (Late st Contact Info) Description 02/03/2025 1:30 PM EST Office Visit [facility] CH[facility] ADULT DENTAL [address] [place] [address] Anjel Yeboah documented as of this encounter Visit Diagnoses Not on filedocumented in this encounter
--- OUTSIDE RECORDS SUMMARY | 2024-11-29 14:57 | XMS_ITS | Encounter Summary ---
Author Organization [employer] Address [address] [facility] [address] [place] [address] Care Team Providers Care President/Gm Production & Live Experiences Name Role Phone Unavailable Primary Care Provider Unavailabl e Encounter Details Date Type Department Care Team (Latest Contact Info) Description 12/16/2021 Abstract [facility] CONVERSIONS Dental, Provider, DDS Social History Tobacco [...] Description 02/03/2025 1:30 PM EST Office Visit [facility] CH[facility] ADULT DENTAL [address] [place] [address] Anjel Yeboah documented as of this encounter Visit Diagnoses Not on filedocumented in this encounter
--- OUTSIDE RECORDS SUMMARY | 2024-11-29 14:57 | XMS_ITS | Encounter Summary ---
Author Organization [employer] [facility] Address [address] [place] [address] [address] [place] [address] Care Team Providers Care Inside Sales Consultant Name Role Phone Unavailable Primary Care Provider Unavailabl e Reason for Visit * Reason Comments Filling Encounter Details Date Type Department Care Team (Late Contact Info) Description 01/23/2022 Abstract [facility] ADULT DENTAL [address] [place] [address] Dental, Provider, DDS Social History Tobacco Use [...] Description 02/03/2025 1:30 PM EST Office Visit [facility] ADULT DENTAL [address] [place] [address] Anjel Yeboah documented as of this encounter Procedures Procedure Name Priority Date/Time Associated Diagnosis Comments 12 CROWN - PORCELAIN/CERAMIC Routine 01/23/2022 12:00 AM EST 9 CROWN - PORCELAIN/CERAMIC Routine 01/23/2022 12:00 AM EST 5 CROWN - PORCELAIN/CERAMIC Routine 01/23/2022 12:00 AM EST 13 B COMPOSITE FILLING Routine 01/23/2022 12:00 AM EST 21 MODL COMPOSITE FILLING Routine 01/23/2022 12:00 AM EST 24 F COMPOSITE FILLING Routine 01/23/2022 12:00 AM EST 25 F COMPOSITE FILLING Routine 01/23/2022 12:00 AM EST 28 B COMPOSITE FILLING Routine 01/23/2022 12:00 AM EST 2 DO AMALGAM FILLING Routine 01/23/2022 12:00 AM EST 7 L AMALGAM FILLING Routine 01/23/2022 12:00 AM EST 14 DOBL AMALGAM FILLING Routine 01/23/2022 12:00 AM EST documented in this encounter Visit Diagnoses Not on filedocumented in this encounter
--- OUTSIDE RECORDS SUMMARY | 2024-11-29 14:58 | XMS_ITS | Clinical Summary ---
Author Organization [facility] [address] [place] [address] [place] [phone] Phone Care Team Providers Care Media Planner / Buyer Name Role Phone Marco Estes Primary Care Provider [phone] Allergies Active Allergy Reactions Criticality Noted Date Comments Atorvastatin 02/17/2023 Muscle cramps Erythromycin Rash,Unknown Medium 11/01/2008 Lansoprazole Diarrhea Low 11/01/2008 Medications aspirin 81 mg EC tablet Take 1 tablet by mouth in the morning. 8 Active valsartan (DIOVAN) 80 mg tablet TAKE 1 TABLET BY MOUTH EVERY DAY 90 tablet 3 5 Active amoxicillin (AMOXIL) 500 mg capsule TAKE 4 CAPSULES ONE HOUR PRIOR TO DENTAL WORK, as needed 8 capsule 5 Active LORazepam (ATIVAN) 0.5 mg tablet Take 1 tablet (0.5 mg total) by mouth every 8 (eight) hours if needed for anxiety for up to 28 days. Max Daily Amount: 1.5 mg 70 tablet 5 Active rosuvastatin (CRESTOR) 10 mg tablet TAKE 1 TABLET BY MOUTH EVERY DAY 90 tablet 1 5 Active dronedarone (MULTAQ) 200 mg tablet 2 (two) times a day with meals. Active nitrofurantoin (MACRODANTIN) 50 mg capsule Take 1 Capsule by mouth daily. 025 Discontinued rosuvastatin (CRESTOR) 10 mg tablet TAKE 1 TABLET BY MOUTH EVERY DAY 90 tablet 1 5 025 Discontinued Active Problems Problem Noted Date Diagnosed Date Left inguinal pain 09/02/2024 Screening for osteoporosis 02/08/2024 Assessment & Plan (02/08/2024 11:52 AM EST): Orders: CBC and differential; Future Lipid panel with reflex to direct LDL; Future Comprehensive metabolic panel; Future BD Bone Density DXA Axial Skeleton; Future MR Brain wo and w Contrast; Future Chronic venous insufficiency 11/18/2021 Assessment & Plan (02/08/2024 11:52 AM EST): Orders: CBC and differential; Future Lipid panel with reflex to direct LDL; Future Comprehensive metabolic panel; Future MR Brain wo and w Contrast; Future COVID-19 virus infection 06/23/2021 Overview (01/01/2024): 06/23/2021 Abnormal echocardiogram 11/28/2020 Overview (01/01/2024): 10/31/2020 mild to moderate mitral regurgitation. Mild mitral stenosis. [facility] Elevated LFTs 08/02/2020 Left bundle branch block 07/13/2018 S/P AVR (aortic valve replacement) 03/13/2017 Overview (01/01/2024): 02/06/2017: Porcine valve [place] Assessment & Plan (02/08/2024 11:52 AM EST): Orders: CBC and differential; Future Lipid panel with reflex to direct LDL; Future Comprehensive metabolic panel; Future MR Brain wo and w Contrast; Future Sensorineural hearing loss (SNHL) of both ears 1 Hemangioma of liver 12/13/2012 Overview (01/01/2024): Right lobe of the liver, CT scan and MRI at [facility] 2009. Ultrasound at [facility] 2012. Anxiety 04/14/2012 Assessment & Plan (02/08/2024 11:52 AM EST): Orders: CBC and differential; Future Lipid panel with reflex to direct LDL; Future Comprehensive metabolic panel; Future MR Brain wo and w Contrast; Future Hiatal hernia 10/01/2008 Overview (01/01/2024): Demonstrated on upper GI [facility] August 2008, small sliding HH. Assessment & Plan (02/08/2024 11:52 AM EST): Orders: CBC and differential; Future Lipid panel with reflex to direct LDL; Future Comprehensive metabolic panel; Future MR Brain wo and w Contrast; Future Mixed hyperlipidemia 03/05/2007 Assessment & Plan (02/08/2024 11:52 AM EST): Orders: CBC and differential; Future Lipid panel with reflex to direct LDL; Future Comprehensive metabolic panel; Future MR Brain wo and w Contrast; Future Idiopathic osteoporosis 05/30/2005 Overview (01/01/2024): Intolerant of AND Evista has seen Dr. Mcmahon on several occasions has declined more d advanced therapies Assessment & Plan (02/08/2024 11:52 AM EST): Orders: CBC and differential; Future Lipid panel with reflex to direct LDL; Future Comprehensive metabolic panel; Future MR Brain wo and w Contrast; Future Atrial fibrillation (CMS/HCC V24, CMS/HCC V28) 0 05/30/2005 Assessment & Plan (02/08/2024 11:52 AM EST): Orders: CBC and differential; Future Lipid panel with reflex to direct LDL; Future Comprehensive metabolic panel; Future MR Brain wo and w Contrast; Future Hemorrhage of gastrointestinal tract 05/30/2005 Overview (01/01/2024): Colonoscopy and EGD Sonam, [place]. IMO update Encounters Date Type Department Care Team Description 11/21/2024 Telephone General Surgery [address] [phone] Omar Vance MD 09/02/2024 10:15 AM EDT Consult [address] [phone] Omar Vance MD Left inguinal pain from Last 3 Months Immunizations Immunization Administration Dates Next Due H1N1 Inj Preservative Free 05/01/2009 Influenza Quadravalent, 0.5m l (Fluad) 65yo and older 11/30/2023 Influenza Quadravalent, MDCK , 0.5ml, preservative free (Flucelvax) 6mo and older 01/05/2018 Influenza trivalent, 0.5mL ( Fluad) 65yo and older 12/02/2022,11/18/2021,11/18/2016 Influenza trivalent, 0.5mL ( Fluzone High-dose) 65yo and older 10/28/2024 Influenza trivalent, 0.5mL, preservative free (Fluarix; FluLaval; Fluzone) ages 6mo and older (Afluria) 3 years and older 12/25/2015,12/21/2014,12/10/2012,11/11,11/05/2010,12/20/2009,11/01/2008 ,11/08/2007,11/28/2006,01/15/2006,08/2004 Influenza, Unspecified 10/16/2018 Pneumococcal conjugate 13 va lent (Prevnar 13, PCV13) 2mo and older 08/09/2014 Pneumococcal polysaccharide 23 valent (Pneumovax 23) 2yo and older 10/15/2007 RSV, bivalent, protein subun it RSVpreF, 0.5mL, Preservative Free (Arexvy) 50yo and older 07/27/2023 SARS-COV-2 (COVID-19) Vaccin e, Unspecified 11/24/2022 Td Tetanus diptheria (Tdvax) 7yo and older 07/02/2017,10/15/2007 Tdap Tetanus diptheria acell ular pertussis (Boostrix; Adacel) 7yo and older 01/24/2019 Zoster Live 03/26/2010 Zoster recombinant (Shingrix ) 19yo and older 10/18/2021,08/09/2021 Surgical History Surgery Date Site/Laterality Comments TONSILLECTOMY ADENOIDECTOMY, BILATERAL MYRINGOTOMY AND TUBES PROCEDURE: RI TONSILLECTOMY & ADENOIDECTOMY <AGE 10 HERNIA REPAIR 2014 Right PROCEDURE: LAPAROSCOPY, INGUINAL HERNIA REPAIR; COMMENT: dr navarrete OTHER SURGICAL HISTORY 02/06/2017 PROCEDURE: RI RPLCMT AORTIC VALVE ANNULUS ENLGMENT NONC SINUS; COMMENT: Porcine valve and Maze procedure, [facility] COLONOSCOPY 03/25/2013 PROCEDURE: HISTORICAL COLONOSCOPY; COMMENT: [facility]; normal. UPPER GASTROINTESTINAL ENDOSCOPY 05/22/2009 PROCEDURE: RI UPPER GI ENDOSCOPY PERFORMED; COMMENT: gastric biopsy: focal active gastritis with eosinophils (HPylori-) no esophagitis. 2 cm HH. CATARACT EXTRACTION Bilateral PROCEDURE: HISTORICAL CATARACT REMOVAL CHOLECYSTECTOMY 01/18/2021 PROCEDURE: RI LAPAROSCOPY SURG CHOLECYSTECTOMY; COMMENT: dr. vance - gallstone pancreatitis Medical History Medical History Date Comments Anemia, unspecified DX:Anemia, u nspecified Aortic stenosis 03/05/2007 DX:Aortic stenos is Aortic stenosis 03/05/2007 DX:Aortic stenos is Hiatal hernia 10/01/2008 DX:Hiatal hernia Anxiety 04/14/2012 DX:Anxiety Hemangioma of liver 12/13/2012 DX:Hemangiom a of liver; COMMENT: Right lobe of the liver, CT scan and MRI at [facility] 2009. Ultrasound at [facility] 2012. Hemangioma of liver 12/13/2012 DX:Hemangiom a of liver S/P AVR (aortic valve replacement) 03/13/2017 DX:S/P AVR (aortic valve replacement); COMMENT: Porcine valve done [place] Chronic venous insufficiency 11/18/2021 DX: Chronic venous insufficiency Pancreatitis PONV (postoperative nausea a nd vomiting) Family History Medical History Relation Name Comments Breast cancer Aunt m 60s maternal Prostate cancer Father Glaucoma Other daughter Breast cancer Paternal Grandmother 30s Cataracts Sister Blindness Neg Hx Colon cancer Neg Hx Macular degeneration Neg Hx Ovarian cancer Neg Hx Strabismus Neg Hx Relation Name Status Comments Aunt m 60s Brother Alive gi sxs Father (Age 91) pneumonia Mother (Age 92) sepsis Other daughter Paternal Grandmother 30s Sister Alive gi sxs Social History Tobacco Use Types Packs/Day Years Used Date Smoking Tobacco: Former Smokeless Tobacco: Never Tobacco Cessation:Counseling Given: Not Answered Alcohol Use Standard Drinks/Week Comments Yes 0 (1 standard drink = 0.6 oz pur e alcohol) Housing Instability Answer Date Recorde d Are you worried that in the next 2 months you may not have stable housing? No 08/16/2024 Food Access & Nutrition Answer Date Rec orded Do you have access to a vari ety of food including fruits and vegetables? Yes 08/16/2024 Health Literacy Answer Date Recorded How often do you need to hav e someone help you when you read instructions, pamphlets, or other written material from your doctor or pharmacy? Never 08/16/2024 Caregiver: How often do you need to have someone help you when you read instructions, pamphlets, or other written material from your doctor or pharmacy? Not on file 08/16/2024 Financial Risk Answer Date Recorded How hard is it for you to pa y for the very basics like food, housing, medical care, and air conditioning / heating? Not very hard 08/16/2024 Transportation Answer Date Recorded Has the lack of transportati on kept you from meetings, work, or from getting things needed for daily living? No Has the lack of transportati on kept you from medical appointments or from getting medications? No 08/16/2024 Social Isolation Answer Date Recorded How often do you feel lonely or isolated from th ose around you? Never 08/16/2024 Food Risk Answer Date Recorded Within the past 12 months we worried whether our food would run out before we got money to buy more. Never true 08/16/2024 Within the past 12 months th e food we bought just didn't last and we didn't have money to get more. Never true 08/16/2024 Dependent Care Answer Date Recorded Do you need help finding or paying for care for your loved ones. For example, registered nurse maternal child or elderly care for an older adult? No 08/16/2024 Education Answer Date Recorded Do you think completing more education or training, like finishing a GED, going to college, or learning a trade, would be helpful for you? No 08/16/2024 Employment and Income Answer Date Recor ded During the last four weeks, have you been actively looking for work? No 08/16/2024 Living Situation Answer Date Recorded What is your living situation? Unrecognized valu e 08/16/2024 Comments No Sex and Gender Information Value Date Recorded Sex Assigned at Female 04/15/2024 3:37 PM EST Legal Sex Female 11:57 AM EST Gender Identity Female 04/15/2024 3:37 PM EST Sexual Orientation Straight 04/15/2024 3: 37 PM EST Obstetrics History Para Term AB IAB SAB Ectopic Multiple Livin g Live Births 2 2 2 2 Date Outcome GA Total Labor Labor/2nd/3rd Weight Sex Type Anes PTL Khushi A1 A5 Name Clin Term Term Last Filed Vital Signs Vital Sign Reading Time Taken Comments Blood Pressure 155/87 09/02/2024 9:54 AM EDT Pulse 94 09/02/2024 9:54 AM EDT Temperature 36.2 C (97.1 F) 09/02/2024 9:54 AM EDT Respiratory Rate 12 08/16/2024 10:35 AM EDT Oxygen Saturation 99% 04/15/2024 7:34 PM EST Inhaled Oxygen Concentration - - Weight 50.8 kg (112 lb) 11/07/2024 12:00 PM EDT Height 149.9 cm (4' 11 ) 11/07/2024 12:00 PM EDT Body Mass Index 22.62 11/07/2024 12:00 PM EDT Plan of Treatment Upcoming Encounters Date Type Department Care Team (Latest Contact Info) Description 12/05/2024 8:45 AM EDT Hospital Encounter [facility] [address] [place] [phone] Omar Vance MD [address] [place] [phone] 12/05/2024 8:45 AM EDT - 12/05/2024 10:00 AM EDT Surgery [address] [phone] Omar Vance MD [address] [place] [phone] Open Left Inguinal Hernia repair [21012 (CPT )] 12/20/2024 1:30 PM EST Office Visit General Surgery [facility] [address] [phone] Omar Vance MD [address] [place] [phone] 12/21/2024 10:00 AM EST Appointment Radiology Department - [address] [phone] 02/20/2025 10:30 AM EST Office Visit [facility] [address] [phone] Marco Estes [place] [facility] [place] [phone] Scheduled Procedures Name Priority Associated Diagnoses Date/Ti me REPAIR HERNIA INGUINAL Left inguinal pain 12/05/2024 8:45 AM EDT Health Maintenance Due Date Last Done Comments Falls Risk Assessment 02/07/2025 02/08/2024, 022 Medicare Annual Wellness Visit 02/07/2025 02/08/2024 Social Influencers of Health Screening 08/16/2025 08/16/2024 DTaP,Tdap,and Td Vaccines (4 - Td or Tdap) 01/24/2029 01/24/2019, 07/02/2017, 10/15/2007 Cholesterol Screening (Lipid Panel) 08/03/2029 08/03/2024, 07/20/2023, 07/20/2023 Osteoporosis Screening (Bone Density Screening) 05/19/2034 05/19/2024, 02/06/2022, 10/11/2019 Pneumococcal Vaccine: 50+ Years Completed 08/09/2014, 10/15/2007 Zoster Vaccines Completed 10/18/2021, 07/18, 03/26/2010 RSV Immunization Adult Patients Completed 07/27/2023 Depression Screening Completed 08/10/2024, 01/15/20 COVID-19 Vaccine Completed 10/28/2024, 03/2023, 11/24/2022, Additional history exists Influenza Vaccine Completed 10/28/2024, , 11/30/2023, Additional history exists HIB Vaccines Aged Out No longer eligi ble based on patient's age to complete this topic HPV Vaccines Aged Out No longer eligi ble based on patient's age to complete this topic Hepatitis A Vaccines Aged Out No long er eligible based on patient's age to complete this topic Hepatitis B Vaccines Aged Out No long er eligible based on patient's age to complete this topic IPV Vaccines Aged Out No longer eligi ble based on patient's age to complete this topic MMR Vaccines Aged Out No longer eligi ble based on patient's age to complete this topic Meningococcal ACWY Vaccine Aged Out N o longer eligible based on patient's age to complete this topic Meningococcal B Vaccine Aged Out No l onger eligible based on patient's age to complete this topic RSV Immunization Patients Under 20 months Aged Out No longer eligible based on patient's age to complete this topic Varicella Vaccines Aged Out No longer eligible based on patient's age to complete this topic Goals Goal Patient Goal Type Associated Problems Recent Progress Patient-Stated? Author Autogenerat ed Goal Care Plan Autogenerated Problem No Omar Vance MD Procedures Procedure Name Priority Date/Time Associated Diagnosis Comments PROCEDURAL ECG Routine 11/15/2024 10:20 AM EDT Pre-op testing ECHO 11/01/2024 LIPID PANEL WITH REFLEX TO DIRECT LDL Routine 08/03/2024 7:51 AM EDT Screening for osteoporosis Idiopathic osteoporosis Longstanding persistent atrial fibrillation (CMS/HCC V24, CMS/HCC V28) Mixed hyperlipidemia Anxiety S/P AVR (aortic valve replacement) Chronic venous insufficiency Hiatal hernia BD BONE DENSITY DXA AXIAL SKELETON Routine 05/19/2024 11:35 AM EDT Screening for osteoporosis Age-related osteoporosis without current pathological fracture DEPRESSION SCREENING Routine 01/14/2023 FALLS RISK ASSESSMENT Routine 01/13/2022 from Last 3 Months or Most Recently Relevant to Health Maintenance Results * ECG 12 lead - Procedural (No Charge) (11/15/2024 10:20 AM EDT) Ventricular Rate ECG 80 BPM GEMUSE Atrial Rate 80 BPM GEMUSE P-R Interval 166 ms GEMUSE QRS Duration 122 ms GEMUSE Q-T Interval 418 ms GEMUSE QTc 482 ms GEMUSE P Wave Gill 69 degrees GEMUSE R Gill -47 degrees GEMUSE T Gill 115 degrees GEMUSE ECG Interpretation Normal sinus rhythm Left axis deviation Left bundle branch block Abnormal ECG When compared with ECG of 15-APR-2024 15:50, No significant change was found Confirmed by Lukas FUNG JAMES ([id number]) on 11/15/2024 4:30:01 PM GEMUSE 11/15/2024 10:2 0 AM EDT 11/15/2024 4:30 PM EDT Omar Vance MD ECG ORDERABLES Final Resul t GEMUSE * Echo (11/01/2024) Anatomical Region Laterality Modality Other Provider [facility] CV HISTORICAL CONV PROCE DURES Final Result * Lipid panel with reflex to direct LDL (08/03/2024 7:51 AM EDT) Cholesterol 131 0 - 200 mg/dL LAB CHEMISTRY METHOD 08/03/2024 10:23 AM [facility] Triglycerides 83 0 - 150 mg/dL LAB CHEMISTRY METHOD 08/03/2024 10:23 AM [facility] HDL 60 >=40 mg/dL LAB CHEMISTRY METHOD 08/03/2024 10:23 AM [facility] LDL Calculated 54 0 - 100 mg/dL LAB CHEMISTRY METHOD 08/03/2024 10:23 AM [facility] VLDL Cholesterol Hari 16.6 mg/dL LAB CHEMISTRY METHOD 08/03/2024 10:23 AM [facility] Non HDL Chol. (LDL+VLDL) 71 <145 mg/dL LAB CHEMISTRY METHOD 08/03/2024 10:23 AM [facility] Chol/HDL Ratio 2.2 0.0 - 4.4 LAB CHEMISTRY METHOD 08/03/2024 10:23 AM [facility] Blood Venous blood specimen / Unknown Venipuncture / Unknown 08/03/2024 7:51 AM EDT 08/03/2024 7:51 AM EDT us Marco GONGORA LAB BLOOD ORDERABLES Tanya chavez Result [facility] [address] [place] [address], [place] [phone] * BD Bone Density DXA Axial Skeleton (05/19/2024 11:35 AM EDT) Anatomical Region Laterality Modality Wrist, Hip, L-spine Bone Densito metry 05/19/2024 4:28 PM EDT Impressions 05/19/2024 4:30 PM EDT Osteoporosis Reference Information: The T-score is the number of standard deviations above or below the standard which is normal for young adults at their peak bone mineral density. The World Health Organization (WHO) interprets the T-scores as follows: At or above -1 SD Normal bone density Between -1 and -2.5 SD Osteopenia At or below -2.5 SD Osteoporosis -------- FINAL REPORT -------- Dictated By: Silver Davalos Dictated Date: 05/19/2024 16:28 ET Assigned Physician: Silver Davalos Reviewed and Electronically Signed By: Silver Davalos Signed Date: 05/19/2024 16:30 ET Workstation ID: [id number] Transcribed By: Self Edit Transcribed Date: 05/19/2024 16:28 ET Narrative 05/19/2024 4:30 PM EDT STUDY: DUAL ENERGY X-RAY ABSORPTIOMETRY / DXA REASON FOR EXAM: Female, 84 years old Bone density screening, risk factors post-menopausal osteoporosis prevention osteoporosis screening TECHNIQUE: Bone Mineral Density (BMD) measurements of the lumbar spine and left hip were obtained using [employer] W (S/N [id number]). COMPARISON: May 19, 2024 FINDINGS: L1-L4 BMD: 0.786 g/cm2 L1-L4 T score: -2.4. This corresponds to osteopenia. This represents a 6.5* % increase in bone density compared with prior exam from February 06, 2022. Left femoral neck BMD: 0.573 g/cm2 Left femoral neck T score: -2.5. This corresponds to osteoporosis. Left total hip BMD: 0.693 g/cm2 Left total hip T score: -2.0. This corresponds to osteopenia. This represents a 0.3 % increase in bone density compared with prior exam from February 06, 2022. * - Indicates a statistically significant change. Procedure Note Silver Davalos MD - 05/19/2024 STUDY: DUAL ENERGY X-RAY ABSORPTIOMETRY / DXA REASON FOR EXAM: Female, 84 years old Bone density screening, riskfactors post-menopausal osteoporosis prevention osteoporosis screening TECHNIQUE: Bone Mineral Density (BMD) measurements of the lumbar spineand left hip were obtained using [employer] W (S/N [id number]). COMPARISON: May 19, 2024 FINDINGS: L1-L4 BMD: 0.786 g/cm2 L1-L4 T score: -2.4. This corresponds to osteopenia. This represents a 6.5* % increase in bone density compared with prior examfrom February 06, 2022. Left femoral neck BMD: 0.573 g/cm2 Left femoral neck T score: -2.5. This corresponds to osteoporosis. Left total hip BMD: 0.693 g/cm2 Left total hip T score: -2.0. This corresponds to osteopenia. This represents a 0.3 % increase in bone density compared with prior examfrom February 06, 2022. * - Indicates a statistically significant change. IMPRESSION: Osteoporosis Reference Information: The T-score is the number of standard deviations above or below thestandard which is normal for young adults at their peak bone mineraldensity. The World Health Organization (WHO) interprets the T-scores asfollows: At or above -1 SD Normal bone density Between -1 and -2.5 SD Osteopenia At or below -2.5 SD Osteoporosis -------- FINAL REPORT -------- Dictated By: Silver Davalos Dictated Date: 05/19/2024 16:28 ET Assigned Physician: Silver Davalos Reviewed and Electronically Signed By: Silver Davalos Signed Date: 05/19/2024 16:30 ET Workstation ID: [id number] Transcribed By: Self Edit Transcribed Date: 05/19/2024 16:28 ET Marco GONGORA IMG DXA PROCEDURES Final Result * Depression Screening (01/14/2023) Depression Screening Abstracted Historical Provider HEALTH MAINTENANCE Final Result * Falls Risk Assessment (01/13/2022) Falls Risk Assessment Abstracted Historical Provider MD HEALTH MAINTENANCE Final Result from Last 3 Months or Most Recently Relevant to Health Maintenance Additional Health Concerns Active Problems Noted Date Diagnosed Date Autogenerated Problem 11/14/2024 Infection Onset Date Last Indicated Parainfluenza Virus 03/16/2024 03/16/2024 Insurance [employer] Care Teams Media Planner / Buyer Relationship Specialty Start Date End Date Marco Estes PA [address] [place] [address] PCP - General Internal Medicine 02/05/24
== END 2024-11-29 11:16 | disposition home or self-care (01) ==
LOC: HO.LAB 11:15
PROVIDERS: PCP Physician Assistant Medical; Visit Provider Nurse Practitioner Family
DX: N39.3 Stress incontinence (female) (male) (principal); Z87.440 Personal history of urinary (tract) infections; Z13.89 Encounter for screening for other disorder
CPT/HCPCS: 81003; 88112; 99212

== ENCOUNTER 2024-11-29 11:15 | Outpatient (AMB) | payer MEDICARE, SELFPAY ==
--- NOTE | 2024-11-29 11:20 | MHC.OFFVIS ---
Intake Visit Reasons: 9m follow up Intake Note: Patient is present for 9M F/U Urology Medication:NITROFURANTION,ESTRADIOL Antibiotic Allergy:ERYTHROMYCIN Blood Thinner:ASPIRIN Commercial Census Taker Required: No Allergies lansoprazole (Prevacid) Allergy (Unknown, Verified 11/29/24 11:59) diarrhea erythromycin base (ERYTHROMYCIN BASE) Adverse Reaction (Intermediate, Verified 11/29/24 11:59) NAUSEA & VOMITING Erythromycin Allergy (Unknown, Uncoded 11/29/24 11:59) Unknown Medication List - Last Reconciled 11/29/24 by LURDES Mojica- aspirin 81 mg PO DAILY dronedarone (Multaq) 400 mg PO DAILY estradiol 0.01%(0.1mg/gram) (Estrace) 1 appful vaginal 3XW 90 days lorazepam 0.5 mg PO BID PRN rosuvastatin 10 mg PO BEDTIME valsartan 80 mg PO DAILY HPI Comments Details: Nevin is a pleasant 84-year-old female patient female patient who presents to the office today for follow-up of her chronic recurrent urinary tract infections. She has a past medical history of AFib, hemangioma of the liver, idiopathic osteoporosis, aortic stenosis, hyperlipidemia, hiatal hernia, gout anxiety, hearing loss, aortic valve disorder, recurrent UTIs, and microscopic hematuria. In discussion with the patient today she reports to be doing and feeling well. She reports noting no UTI like symptoms and or UTIs since her last office visit here. She reports compliance with Estrace cream as prescribed. She had previously been on low-dose Macrobid however has since stopped and has not had any UTI like symptoms and or urinary tract infections. Previous workup has included a retroperitoneal ultrasound 01/08 noting bilateral kidneys with no calculi, lesions, and or hydronephrosis. The bladder is well distended and normal. Bilateral ureteral jets are demonstrated. Pre void bladder volume is approximately 300 mL. Postvoid bladder volume is approximately 10 mL. She discusses her upcoming surgery at [facility] for an inguinal and umbilical hernia. Previous assessment has included exam for further assessment evaluation of pelvic organ prolapse however this was not noted. She otherwise denies urinary urgency, urinary frequency, nocturia, hematuria, dysuria, foul smelling urine, changes to urinary stream, flank pain, fever, and or chills. In office urinalysis results reviewed with the patient today. Urine cytology 02/06 Negative for high-grade urothelial carcinoma. All questions were answered. She otherwise offers no other issues or concerns at this time. [facility] Medical History History of recurrent urinary tract infection Dysuria Hemorrhage of gastrointestinal tract Atrial fibrillation Hemangioma of liver Idiopathic osteoporosis Aortic stenosis Hyperlipidemia Hiatal hernia Anxiety Hearing loss Aortic valve disorder UTI (urinary tract infection) Microscopic hematuria Surgical History History of surgery H/O aortic valve replacement H/O adenoidectomy History of tonsillectomy History of hernia repair H/O laparoscopy History of colonoscopy Family History Father Prostate cancer Mother Sepsis Other Breast cancer Review of Systems Const Reports no additional complaints Eyes Reports no additional complaints ENT Reports no additional complaints Card Reports no additional complaints Resp Reports no additional complaints GI Details: patient reports using felice seeds that help her with regular bowel movements Reports no additional complaints Reports as per HPI Musc Reports no additional complaints Neuro Reports no additional complaints Psych Reports no additional complaints Physical Exam Const General: cooperative, healthy appearing, comfortable, no acute distress, well developed, alert and awake Nutritional Appearance: average body habitus Orientation/consciousness: patient oriented x3 Limitations: no limitations HEENT Head: Yes normal to inspection, Yes normocephalic and Yes atraumatic Ears: hearing grossly normal bilaterally Eyes General: appearance normal, both eyes and all related structures Neck Neck: Yes normal visual inspection and Yes trachea midline Chest Chest palpation & inspection: normal inspection of the chest Resp Effort & Inspection: normal respiratory effort and able to speak in complete sentences Cardio Rate: regular rate GI Inspection: Yes normal to inspection General: Yes no CVA tenderness External Female Exam: normal external appearance Speculum Exam - Vagina: normal appearance of the vagina Back/Spine/Pelvis Back: no CVA tenderness Neuro General: patient oriented x3 Extrem General: Yes normal to inspection Psych Appearance: grossly normal and well kempt Mental Status: mental status grossly normal Speech and movement: Normal speech and movement present and Clear speech present Affect: normal affect Attitude: cooperative Thought process: Normal thought process present Thought content: Normal thought content present Insight: Fair insight present (Psych) Judgement: Fair judgement present (Psych) Results AMB Urinalysis, Automated UA Leukoctes 0 Dante/uL Last Edit by Loc Ortiz [facility] on 11/29/24 11:55 UA Nitrite Negative Last Edit by Loc Ortiz [facility] on 11/29/24 11:55 UA Urobilinogen 0.2 mg/dL Last Edit by Loc Ortiz [facility] on 11/29/24 11:55 UA Protein 0 mg/dL Last Edit by Loc Ortiz [facility] on 11/29/24 11:55 UA pH 6.0 Last Edit by Loc Ortiz, [facility] on 11/29/24 11:55 UA Blood 10 David/uL Last Edit by Loc Ortiz, [facility] on 11/29/24 11:55 UA Specific [place] 1.005 Last Edit by Loc Ortiz [facility] on 11/29/24 11:55 UA Ketone Negative Last Edit by Loc Ortiz [facility] on 11/29/24 11:55 UA Bilirubin 0 mg/dL Last Edit by Loc Ortiz [facility] on 11/29/24 11:55 UA Glucose 0 mg/dL Last Edit by Loc Ortiz [facility] on 11/29/24 11:55 Results Reviewed Results Reviewed: Laboratory Last Values Urine pH (Auto) 6.0 11/29/24 11:52 Specific [place] (Auto) 1.005 11/29/24 11:52 Urine Protein (Auto) 0 mg/dL 11/29/24 11:52 Glucose (UA)(Auto) 0 mg/dL 11/29/24 11:52 Urine Ketones (Auto) Negative 11/29/24 11:52 Urine Blood (Auto) 10 David/uL 11/29/24 11:52 Urine Nitrite (Auto) Negative 11/29/24 11:52 Urine Bilirubin (Auto) 0 mg/dL 11/29/24 11:52 Urine Urobilinogen (Auto) 0.2 mg/dL 11/29/24 11:52 Leukocyte Esterase (Auto) 0 Dante/uL 11/29/24 11:52 Assessment & Plan Assessment & Plan (1) Stress incontinence: Code(s): N39.3 - Stress incontinence (female) (male) Category: Medical (2) History of recurrent urinary tract infection: Code(s): Z87.440 - Personal history of urinary (tract) infections Category: Medical Plan In office urinalysis results reviewed with the patient today; as noted above; will send for urine cytology We discussed at length potential causes of stress incontinence as well as further treatment options and risks and benefits of these treatment options. She currently denies any bothersome urinary issues or concerns. She reports be happy with current voiding parameters. Continue Estrace cream. Stop prophylactic Macrobid. Will continue with surveillance monitoring Follow-up in 1 year with PVR; or sooner with any issues, concerns, and or questions. Orders: Orders AMB Urinalysis Automated Today Z13.9 - Encounter for screening, unspecified Urine Cytology Today Z87.440 - Personal history of urinary (tract) infections Patient Instructions: The patient had an opportunity to ask questions regarding the treatment plan. All questions were answered. Physical exam, labs, and imaging were discussed and reviewed in detail. As well as risks, benefits, and discussion of treatment choices. No major barriers to understanding were identified. The patient expressed understanding and agreement with the above treatment plan. The patient was made aware they should contact our office by phone for worsening of their current condition, the appearance of new symptoms, or with any questions or concerns. Compliance is encouraged with any medications and follow up testing that is ordered. It is a privilege to be allowed the opportunity to participate in? your urological care.? Again, if you have any questions or concerns If you have any questions or concerns please do not hesitate to contact me. The office is [phone]. This note is constructed using voice recognition software. While every effort has been made to ensure accuracy central lab technician errors may have been included. Yours sincerely, BRITTANY Mojica Coding Level of Care Code Est Pt Level 3 (90336) Complex EM visit Add On G2211 Diagnoses Stress incontinence N39.3 History of recurrent urinary tract infection Z87.440
--- OUTSIDE RECORDS SUMMARY | 2024-11-29 13:35 | XMS_ITS | Encounter Summary ---
Author Organization [facility] Address [address] [place] [address] Care Team Providers Care Non Destructive Evaluation Specialist Name Role Phone Yordan Seay MD Primary Care Provider Vikram Byrd MD Unavailable [phone] Yordan Seay MD Primary Care Provider [phone] Eduardo Hong MD Unavailable [phone] Encounter Details Date Type Department Care Team (Late st Contact Info) Description 01/06/2017 Scanned Document [facility] [address] [place] [id number] Woodrow Cotto MD [address] [place] [address] [id number] Social History Tobacco Use Types Packs/Day Years Used Date Smoking Tobacco: Never Assessed Comments Unknown Sex and Gender Information Value Date Recorded Sex Assigned at Not on file Legal Sex Female 11:51 AM EST Gender Identity Not on file Sexual Orientation Not on file documented as of this encounter Plan of Treatment Not on file documented as of this encounter Visit Diagnoses Not on filedocumented in this encounter Care Teams Non Destructive Evaluation Specialist Relationship Specialty Start Date End Date Yordan Seay MD [address] [place] [address] PCP - General 01/01/17 03/10/17 Yordan Seay MD [address] [place] [id number] PCP - General 03/11/17 Vikram Byrd MD [address] [facility] [address] [place] [address] Bacteriologist Industrial Cardiovascular Disease 03/11/17 Eduardo Hong MD [address] [facility] [address] [place] [address] Consulting Provider Surgery, Cardiac 03/11/17 documented as of this encounter
--- OUTSIDE RECORDS SUMMARY | 2024-11-29 13:36 | XMS_ITS | Patient Health Record ---
[facility] Organization [facility] Address [address] [place] [address] Care Team Providers Care Orthopedic Brace Maker Name Role Phone Yordan Seay MD Primary Care Provider Any Roa Unavailable [phone] Allergies Allergen (clinical drug ingredient) Drug/Non Drug Allergy documented on EMR Reaction Allergy Type Onset Date Status erythromycin Erythromycin Unknown Drug Allergy A ctive lansoprazole Prevacid diarrhea Drug Allergy Acti ve Reason For Referral No Information Medications Medication SIG (Take, Route, Frequency, Duration) Notes Start Date End Date Status Simvastatin 40 MG Oral; Duration: 90 Active Propafenone HCl 150 MG Oral; Duration: 90 Active LORazepam 0.5 MG Oral; Duration: 30 prn Active Ipratropium English 0.06 % Nasal; Duration: 90 prn Not-Taki ng zzzBone Stimulator . . . .; Duration: dx Stress fx 01/31/2015 Not-Taking Physical Therapy . . Gait training, strengthening. Call with questions 2-3x/week; Duration: 3-4 weeks 05/23/2015 Not-Taking Physical Therapy . . . 2-3x/week; Duration: as needed 10/06/2016 Active ASO Ankle/Foot Stablizing AFO As directed Wear Daily; Duration: as needed 09/01/2016 Active Atenolol 50 MG Oral; Duration: 90 Active Aspirin 81 MG 1 tablet Orally Once a day Active Diphenoxylate-Atropine 2.5-0.025 MG Oral; Duration: 7 Not-Taking Nightsplint AFO as directed Wear As directed; Duration: as needed 11/17/2016 Active Social History Tobacco [...] Insured Coverage Start Date Coverage End Date [facility] [id number] [place] [id number] Nevin Chavez Self - patient is the insured Medical (General) History Medical History History ICD Code Hemangioma of liver Anxiety Hiatal hernia with reflux Hyperlipidemia Aortic stenosis Osteoporosis, ideopathic Atrial fibrillation, paroxysmal Hemorrhage of gastrointestinal tract Transfusions Surgical History Surgery Date(Month/Year) tonsillectomy and adenoidectomy inguinal hernia repair, laparoscopic colonoscopy gastric biopsy Hospitalization History Reason Date(Month/Year) [facility] xrays right foot 12/30/14
--- OUTSIDE RECORDS SUMMARY | 2024-11-29 13:36 | XMS_ITS | Clinical Summary ---
Author Organization [facility] Address [address] [place] [address] Care Team Providers Care It Investment/Portfolio Manager Name Role Phone Vikram Byrd MD Unavailable [phone] Yordan Seay MD Primary Care Provider [phone] Eduardo Hong MD Unavailable [phone] Allergies Active Allergy Reactions Criticality Noted Date Comments Erythromycin Unknown/Patient and Family Unable to Define Medium 11/01/2008 Iodinated Contrast Media Hives Medium 01/21/2017 Lansoprazole Diarrhea Low 11/01/2008 Medications warfarin (COUMADIN) 1 MG tabletIndications :Chest pain, unspecified type,Aortic valve stenosis, etiology of cardiac valve disease unspecified Take 0.5 tablets (0.5 mg total) by mouth daily at the same time. Unless otherwise directed for GOAL INR 2-3 (AF and AVR) 30 tablet 1 7 Active lisinopril (PRINIVIL,ZeSTRIL ) 5 MG tabletIndications :Chest pain, unspecified type,Aortic valve stenosis, etiology of cardiac valve disease unspecified Take 1 tablet (5 mg total) by mouth daily. 30 tablet 1 7 Active sotalol (BETAPACE) 80 MG tabletIndications :Chest pain, unspecified type,Aortic valve stenosis, etiology of cardiac valve disease unspecified Take 1 tablet (80 mg total) by mouth every 12 (twelve) hours around the clock. 60 tablet 1 7 Active furosemide (LASIX) 20 MG tabletIndications :S/P AVR (aortic valve replacement),Othe r hypervolemia Take 1 tablet (20 mg total) by mouth daily. 7 tablet 8 Active Active Problems Problem Noted Date Diagnosed Date Chest pain 02/05/2017 Family History Medical History Relation Name Comments Dementia Father Relation Name Status Comments Father Mother Social History Tobacco Use Types Packs/Day Years Used Date Smoking Tobacco: Former Cigarettes 2 9 Smokeless Tobacco: Never Alcohol Use Standard Drinks/Week Comments Yes 0 (1 standard drink = 0.6 oz pur e alcohol) rare Comments Unknown Sex and Gender Information Value Date Recorded Sex Assigned at Not on file Legal Sex Female 11:51 AM EST Gender Identity Not on file Sexual Orientation Not on file Last Filed Vital Signs Vital Sign Reading Time Taken Comments Blood Pressure 120/78 03/09/2017 12:38 PM EST Pulse 72 03/09/2017 12:38 PM EST Temperature 36.9 C (98.5 F) 03/09/2017 12:38 PM EST Respiratory Rate 16 03/09/2017 12:38 PM EST Oxygen Saturation 98% 02/12/2017 11:00 AM EST Inhaled Oxygen Concentration - - Weight 51.7 kg (114 lb) 03/09/2017 12:38 PM EST Height 149.9 cm (4' 11 ) 02/05/2017 3:18 PM EST Body Mass Index 23.03 02/05/2017 3:18 PM EST Plan of Treatment Health Maintenance Due Date Last Done Comments Advance Care Planning 1940 DTaP/Tdap/Td Vaccines (1 - Tdap) 1957 Pneumococcal Vaccines 50+ (1 of 1 - PCV) 02/29/1988 Zoster (Shingles) Vaccine (1 of 2) 02/29/1988 DXA Bone Density (Females,Ag es 65 and older) 2003 RSV Vaccine 60 years and old er and Patients (1 - 1-dose 75+ series) 2013 Influenza Vaccine 09/16/2024 COVID-19 Vaccine ( - 2023-2 5 season) 2024 Hepatitis B Vaccines Aged Out No long er eligible based on patient's age to complete this topic Medical Devices Implanted Type Area Photography Spotter Device Identifier Shelf Expiration Date Model / Serial / Lot Valve Aortic 21mm Edwrd Intuity Elt Sterl Lf - [id number] Implanted:Qty: 1 on 02/06/2017 by Eduardo Hong MD at [facility] Valve N/A: Aorta DENT [employer] Home ESTRELLA 03/05/2018 [id number] / [id number] / Insurance [address] [employer] [place] [id number] Advance Directives * Full Code (Latest Code Status on File) Date Activated Date Inactivated Comments 02/06/2017 7:00 PM * Full Code Date Activated Date Inactivated Comments 02/05/2017 11:13 AM 02/06/2017 7:00 PM Question Answer Comments Decision Thoroughly Discussed with: Unable to Di scuss Care Teams It Investment/Portfolio Manager Relationship Specialty Start Date End Date Yordan Seay MD [address] [place] [address] PCP - General 03/11/17 Vikram Byrd MD [address] [place] [address] Chef French Cardiovascular Disease 03/11/17 Eduardo Hong MD [address] [address] Consulting Provider Surgery, Cardiac 03/11/17
--- OUTSIDE RECORDS SUMMARY | 2024-11-29 13:36 | XMS_ITS ---
Author Name [facility] Organization Unknown History of Medication Use Medication Directions Dispensed Refills Start Date End Date Stat us furosemide (LASIX) 20 MG tablet Take 1 tablet (20 mg total) by mouth daily. 03/09/2017 active lisinopril (PRINIVIL,ZeSTRIL) 5 MG tablet Take 1 tablet (5 mg total) by mouth daily. 02/13/2017 active sotalol (BETAPACE) 80 MG tablet Take 1 tablet (80 mg total) by mouth every 12 (twelve) hours around the clock. 02/12/2017 active warfarin (COUMADIN) 1 MG tablet Take 0.5 tablets (0.5 mg total) by mouth daily at the same time. Unless otherwise directed for GOAL INR 2-3 (AF and AVR) 02/12/2017 active Allergies Allergen Reaction Severity Comment Documented Date Source Statu s IODINATED DIAGNOSTIC AGENTS HIVES Moderate 01/21/2017 [facility] active LANSOPRAZOLE DIARRHEA Mild 11/01/2008 [facility] active ERYTHROMYCIN UNKNOWN/PATIENT AND FAMILY UNABLE TO DEFINE Moderate [facility] Problems Problem Status Onset Date Problem Type Date of Resoluti on Source Chest pain active 2017-02-05 ProblemAct [facility] Care Team Organization Name Specialty Phone Email Start Date End Da te [facility] [place]
--- OUTSIDE RECORDS SUMMARY | 2024-11-29 13:36 | XMS_ITS | Encounter Summary ---
Author Organization [facility] Address [address] [place] [address] Care Team Providers Care Manager Machine Name Role Phone Vikram Byrd MD Unavailable [phone] Yordan Seay MD Primary Care Provider Eduardo Hong MD Unavailable Encounter Details Date Type Department Care Team (Late st Contact Info) Description 07/08/2021 Scanned Document [facility] Cardiothoracic Surgery [address] [address] Eduardo Hong MD [address] [place] [address] Social History Tobacco Use Types Packs/Day Years [...] on filedocumented in this encounter Care Teams Manager Machine Relationship Specialty Start Date End Date Yordan Seay MD [address] [place] [id number] PCP - General 03/11/17 Vikram Byrd MD 85 [facility] [address] [place] [address] Green Building Energy Engineer Cardiovascular Disease 03/11/17 Eduardo Hong MD 85 [facility] [address] [place] [address] Consulting Provider Surgery, Cardiac 03/11/17 documented as of this encounter
== END 2024-11-29 12:03 | disposition home or self-care (01) ==
LOC: HO.HUSH 11:15
PROVIDERS: PCP Physician Assistant Medical; Visit Provider Nurse Practitioner Family
DX: N39.3 Stress incontinence (female) (male) (principal); Z87.440 Personal history of urinary (tract) infections; Z13.9 Encounter for screening, unspecified
CPT/HCPCS: 99213; G2211